=== PATIENT | female | born 1995 | race Caucasian/White ===

== ENCOUNTER 2017-05-22 19:27 | Emergency (ER) | payer SELFPAY ==
[~2017-05-22] VITALS: Ht 167.6 cm; Wt 49.0 kg
[2017-05-22 19:34] VITALS: BP 138/92
--- NOTE | 2017-05-22 19:49 | NUR ---
Pt c/o small lac on left index finger, approx 4-5mm. Pt also c/o "just don't feel right," maybe slightly light headed. Pt denies CP, SOB, n/v, no other complaints, no distress noted.
--- NOTE | 2017-05-22 20:11 | NUR ---
Wound bandaged, PMS intact, cap refill < 2 sec. Gave pt d/c instructions, pt verbalized understanding.
== END 2017-05-22 20:19 | disposition home or self-care (01) ==
LOC: ER 19:30
DX: S61.211A Laceration without foreign body of left index finger without damage to nail, initial encounter (principal); W26.0XXA Contact with knife, initial encounter; Y93.89 Activity, other specified; Y92.89 Other specified places as the place of occurrence of the external cause; Y99.8 Other external cause status
CPT/HCPCS: 99282; A4606; Z7610; Z7502